=== PATIENT | female | born 1970 | race Caucasian/White ===

== ENCOUNTER 2019-08-21 17:10 | Emergency (ER) | payer MEDICAID ==
[~2019-08-21] VITALS: Ht 162.6 cm; Wt 96.7 kg
[2019-08-21] MEDS ORDERED: ketorolac trometh. 30mg/ml inj. IM STA (17:56)
[2019-08-21] MEDS ORDERED: HYDROcodone/acetaminophen 5mg/325mg tablet PO ONE (18:00)
[2019-08-21] MEDS ORDERED: ondansetron 4mg rapidly disintigrating tab PO ONE (18:00)
[2019-08-21 19:13] VITALS: BP 144/89
== END 2019-08-21 19:16 | disposition home or self-care (01) ==
LOC: ER 17:11
DX: S93.491A Sprain of other ligament of right ankle, initial encounter (principal); S90.121A Contusion of right lesser toe(s) without damage to nail, initial encounter; F10.99 Alcohol use, unspecified with unspecified alcohol-induced disorder; Z90.49 Acquired absence of other specified parts of digestive tract; Z88.8 Allergy status to other drugs, medicaments and biological substances; X50.1XXA Overexertion from prolonged static or awkward postures, initial encounter; Y93.89 Activity, other specified; Y92.89 Other specified places as the place of occurrence of the external cause; Y99.8 Other external cause status; Y90.9 Presence of alcohol in blood, level not specified
CPT/HCPCS: 73610; 73630; 96372; 99284; J1885